=== PATIENT | female | born 1965 | race Caucasian/White ===

== ENCOUNTER 2016-11-12 06:06 | Inpatient (IN) ==
[2016-11-09 09:54] LABS: HEMATOCRIT 40.8 % (37.0-47.0); HEMOGLOBIN 13.4 g/dL (12.0-16.0); MCH 28.9 PG (27-31); MCHC 32.8 g/dL (33-37); MCV 87.9 FL (81-99); MPV 10.5 FL (7.4-10.4); RBC 4.64 XMIL (4.2-5.4)
[2016-11-09 10:24] LABS: AGAP 10; BUN 16 mg/dL (8-22); CALCIUM 8.9 mg/dL (8.8-10.2); CHLORIDE 103 mmol/L (98-107); COSMO 286; SODIUM 143 mmol/L (136-145); TCO2 30 mmol/L (25-35)
--- NOTE | 2016-11-09 11:16 | EKG Report ---
Test Performed on : 11/09/2016 09:31:11 AM Test Reason : PAT Blood Pressure : / mmHG Vent. Rate : 067 BPM Atrial Rate : 067 BPM P-R Int : 138 ms QRS Dur : 082 ms QT Int : 386 ms P-R-T Axes : 073 076 076 degrees QTc Int : 407 ms Normal sinus rhythm. Normal ECG No previous ECGs available Confirmed by Sintia WHITNEY, Lior Gimenez ([id number]) on 11/09/2016 5:24:13 PM
[2016-11-12] MEDS ORDERED: KEFZOL 1 GM/D5W 50 ML ONE (06:13)
[2016-11-12] MEDS ORDERED: REGLAN ONE (06:13)
[2016-11-12] MEDS ORDERED: LR 1,000 ML ONE ×2 (06:13→10:54)
[2016-11-12] MEDS ORDERED: PEPCID ONE (06:13)
[2016-11-12] MEDS ORDERED: DUONEB (A & A) INH ONE (06:40)
[2016-11-12] MEDS ORDERED: CLINDAMYCIN 600 MG/NS 50 ML ONE (07:12)
[2016-11-12] MEDS ORDERED: MARCAINE 0.25% PF/EPI 1:200,000 ONE (07:59)
[2016-11-12] MEDS ORDERED: FENTANYL ONE (10:17)
[2016-11-12] MEDS ORDERED: DIPRIVAN 1% ONE (10:18)
[2016-11-12] MEDS ORDERED: VERSED ONE (10:18)
[2016-11-12] MEDS: DILAUDID ONE ×2 (10:19→10:38)
[2016-11-12] MEDS ORDERED: D5 LR 1,000 ML ONE (10:52)
[2016-11-12] MEDS ORDERED: ATROPINE ONE (10:53)
[2016-11-12] MEDS ORDERED: NEOSTIGMINE ONE (10:53)
[2016-11-12] MEDS ORDERED: QUELICIN (DOSE) ONE (10:54)
[2016-11-12] MEDS ORDERED: DECADRON ONE (10:54)
[2016-11-12] MEDS ORDERED: ZEMURON ONE (10:54)
[2016-11-12] MEDS ORDERED: XYLOCAINE-MPF 2% ONE (10:54)
[2016-11-12] MEDS ORDERED: ROBINUL ONE (10:54)
[2016-11-12] MEDS ORDERED: EPHEDRINE ONE (10:54)
[2016-11-12] MEDS ORDERED: ROBAXIN PO PRN (12:05)
[2016-11-12] MEDS ORDERED: NORCO-10 PO PRN (12:05)
[2016-11-12] MEDS ORDERED: PERCOCET-10 PO PRN (12:10)
[2016-11-12] MEDS ORDERED: FLUZONE QUAD 2016-2017 SYRINGE IM ONE (12:40)
[2016-11-12] MEDS: DILAUDID IV PRN ×4 (12:54→23:52)
[2016-11-12] MEDS: D5 LR 1,000 ML IV SCH (12:54)
[2016-11-12] MEDS ORDERED: PERCOCET-10 PO SCH (13:00)
[2016-11-12] MEDS ORDERED: PNEUMOVAX 23 IM ONE (14:45)
[2016-11-12] MEDS: CARAFATE PO SCH ×3 (15:27→21:50)
[2016-11-12] MEDS: LYRICA PO SCH ×2 (15:27→21:50)
[2016-11-12] MEDS: PERIDEX MT SCH ×2 (15:27→21:48)
[2016-11-12] MEDS: SPIRIVA INH SCH (16:43)
[2016-11-12] MEDS: ZOFRAN IV PRN (18:26)
[2016-11-12] MEDS: PERCOCET-10 PO PRN (21:49)
[2016-11-12] MEDS: VALIUM PO SCH (21:49)
[2016-11-12] MEDS: WELLBUTRIN SR PO SCH (21:49)
[2016-11-12] MEDS: DESYREL PO SCH (21:50)
[2016-11-13] MEDS: PRILOSEC PO SCH (06:28)
[2016-11-13] MEDS: CARAFATE PO SCH ×4 (06:28→22:23)
[2016-11-13] MEDS: PERCOCET-10 PO PRN ×3 (06:28→22:21)
[2016-11-13] MEDS: D5 LR 1,000 ML IV SCH (06:30)
[2016-11-13] MEDS: SPIRIVA INH SCH (08:04)
[2016-11-13] MEDS: SYMBICORT 160/4.5 MICROGM INHALER INH SCH ×2 (08:04→21:03)
[2016-11-13] MEDS: DILAUDID IV PRN ×4 (08:17→17:11)
[2016-11-13] MEDS: LYRICA PO SCH ×3 (08:18→22:23)
[2016-11-13] MEDS: WELLBUTRIN SR PO SCH ×2 (08:18→22:23)
[2016-11-13] MEDS: PERIDEX MT SCH ×2 (08:25→22:23)
[2016-11-13] MEDS: VALIUM PO SCH (08:25)
[2016-11-13] MEDS: CYMBALTA PO SCH ×2 (12:12)
[2016-11-13] MEDS: ZOFRAN IV PRN ×2 (12:12→17:57)
[2016-11-13] MEDS: LOVENOX SUBQ SCH (12:14)
--- NOTE | 2016-11-13 13:18 | PROGRESS NOTE ---
DATE: 11/13/2016 SUBJECTIVE: She has had pain overnight. That is her main issue. No nausea. She is having bowel function. OBJECTIVE: No fevers. No tachycardia. Abdomen is appropriately tender. Dressings, incisions look okay. I reviewed her labs. 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 She is having quite a bit of pain. I have asked the nurse to administer p.r.n. Dilaudid in addition to her Percocet. She does have chronic pain issues related to a pelvis fracture in the past which she takes Percocet chronically for. Otherwise I think she is progressing as appropriate. Will advance her diet as tolerated and encourage physical therapy and out of bed.
[2016-11-13] MEDS: DESYREL PO SCH (22:23)
[2016-11-14] MEDS: VALIUM PO SCH ×2 (05:55→14:04)
[2016-11-14] MEDS: PRILOSEC PO SCH (06:01)
[2016-11-14] MEDS: PERCOCET-10 PO PRN ×2 (06:01→09:02)
[2016-11-14] MEDS: CARAFATE PO SCH ×3 (06:01→17:08)
[2016-11-14] MEDS: CYMBALTA PO SCH ×2 (09:01)
[2016-11-14] MEDS: LYRICA PO SCH ×2 (09:02→17:07)
[2016-11-14] MEDS: WELLBUTRIN SR PO SCH (09:02)
[2016-11-14] MEDS: LOVENOX SUBQ SCH ×2 (09:02→11:50)
[2016-11-14] MEDS: PERIDEX MT SCH (09:03)
[2016-11-14] MEDS: DILAUDID IV PRN ×3 (09:03→18:01)
--- NOTE | 2016-11-14 13:14 | PROGRESS NOTE ---
DATE: 11/14/2016 SUBJECTIVE: She continues to complain of pain. She is passing gas. No nausea. OBJECTIVE: Vital signs: No fevers. No tachycardia. Blood pressures are stable but mildly low at 95/58 and this is what they have been throughout her admission. General: She is alert. Abdomen: Soft. Appropriately tender. Dressings are clean, dry, intact. LABS: I reviewed her labs. Nothing new today. ASSESSMENT AND PLAN: This is a 51-year-old female status post lumbar hernia repair laparoscopically she has chronic pain and pain control is an issue for her. Dilaudid does seem to help. Continue to monitor her. I have encouraged her to get out of bed. Will advance her diet. Will continue to follow.
[2016-11-14] MEDS: SYMBICORT 160/4.5 MICROGM INHALER INH SCH ×2 (18:26→20:24)
[2016-11-14] MEDS: SPIRIVA INH SCH (18:27)
[2016-11-15] MEDS: DESYREL PO SCH ×2 (00:07→20:00)
[2016-11-15] MEDS: WELLBUTRIN SR PO SCH ×3 (00:07→20:00)
[2016-11-15] MEDS: CARAFATE PO SCH ×5 (00:07→20:00)
[2016-11-15] MEDS: LYRICA PO SCH ×4 (00:08→23:58)
[2016-11-15] MEDS: VALIUM PO SCH ×2 (00:08→09:12)
[2016-11-15] MEDS: SPIRIVA INH SCH ×2 (00:08→08:30)
[2016-11-15] MEDS: PERIDEX MT SCH ×3 (00:08→20:00)
[2016-11-15] MEDS: DILAUDID IV PRN (04:39)
[2016-11-15] MEDS: PRILOSEC PO SCH (06:18)
[2016-11-15] MEDS: SYMBICORT 160/4.5 MICROGM INHALER INH SCH ×2 (08:02→20:19)
[2016-11-15] MEDS: PERCOCET-10 PO PRN ×4 (08:43→23:58)
[2016-11-15] MEDS: CYMBALTA PO SCH ×2 (08:43→08:44)
[2016-11-15] MEDS: ZOFRAN IV PRN (09:13)
--- NOTE | 2016-11-15 10:00 | PROGRESS NOTE ---
DATE: 11/15/2016 SUBJECTIVE: The patient complains of pain in her right abdomen and back. She reports throwing up yesterday but none overnight or this morning. She has passed some gas. She has walked only to the bedside commode and back. OBJECTIVE: Vital Signs: She is afebrile. Vital signs are stable. She is on a little oxygen by nasal cannula. Her O2 saturation is 91-98%. Respiratory rate 15-18. General: She is alert and oriented x3. No acute distress. Respiratory: No work of breathing. Bilateral equal breath sounds. CV: Regular rate and rhythm. Gastrointestinal: Soft and nondistended. No bruising, hematoma, or seroma. She has appropriate mild tenderness along the right flank and right lower quadrant. The incision is clean, dry, and intact. No erythema is present. Abdomen: Was soft and nondistended. ASSESSMENT AND PLAN: A 51-year-old female, status post right-sided flank or lumbar hernia repair. She has had some difficulties with pain control. She is on chronic pain medicine. She seems quite unmotivated to move. I have strongly encouraged her to get up and walk today. I am going to consult physical therapy for assistance with this. We need to try to wean her off her oxygen as she does not wear oxygen at home. I told her to drink plenty of liquids and only eat what food she can tolerate and not to push that too much right now. Hopefully, she can be discharged within the next 24 hours.
[2016-11-15] MEDS: LOVENOX SUBQ SCH (11:16)
--- NOTE | 2016-11-15 17:56 | OPERATIVE NOTE ---
PROCEDURE DATE: 11/12/2016 PREOPERATIVE DIAGNOSIS: Traumatic abdominal wall hernia. POSTOPERATIVE DIAGNOSIS: Traumatic abdominal wall hernia. PROCEDURE: 1. Open repair of abdominal hernia on the right lower quadrant and right flank. 2. Intermediate closure. SURGEON: Monty Farrell MD ANESTHESIA: General. ESTIMATED BLOOD LOSS: 50 mL. COMPLICATIONS: None apparent. SPECIMENS: Hernia sac FINDINGS: Moderately large 5 x 6 cm hernia defect along the right lower quadrant flank just cephalad to the iliac crest. This had reducible colon herniating out into the sac. TECHNIQUE: She was brought to the operating room. General anesthesia was induced. A Elias catheter was placed. She was placed on her left side with the right side up. She was prepped and draped in sterile fashion. A transverse incision was made over the right lower quadrant and right flank. The dissection was carried down through the subcutaneous tissues with cautery. The hernia sac was encountered and dissected free from the overlying subcutaneous fatty adhesions to the edges. The fascia were delineated circumferentially with cautery. The hernia sac was then entered sharply, and was excised from the edges of the fascia. The colon, appendix, and omentum were reduced back into the abdominal cavity. I then selected an 8 cm circular dual sided Symbotex mesh and placed it in an inlay intraperitoneal position. It was anchored to the abdominal wall muscles as well as some of the periosteum of the iliac crest with interrupted horizontal mattress 2-0 Prolene. There was only enough for a finger tip between each throw. The mesh was in good approximation all the way around once this was all done. I then closed the fascia over the mesh with interrupted horizontal mattress #1 Prolene, this was under mild to moderate degree of tension. I then closed the subcutaneous Eben's fascia with interrupted 3-0 Polysorb and closed the skin with skin clips. This was done after hemostasis was achieved in the wound with cautery. She tolerated this well. A sterile dressing was applied. There were no apparent complications. She was awakened in stable condition and transferred to the recovery room.
[2016-11-16] MEDS: DESYREL PO SCH (01:28)
[2016-11-16] MEDS: VALIUM PO SCH ×3 (01:28→21:50)
[2016-11-16] MEDS: CARAFATE PO SCH ×4 (07:41→21:49)
[2016-11-16] MEDS: PRILOSEC PO SCH (07:41)
[2016-11-16] MEDS: SPIRIVA INH SCH ×3 (07:48→18:26)
[2016-11-16] MEDS: SYMBICORT 160/4.5 MICROGM INHALER INH SCH ×2 (07:48→23:10)
[2016-11-16] MEDS: WELLBUTRIN SR PO SCH ×2 (08:08→21:50)
[2016-11-16] MEDS: CYMBALTA PO SCH ×2 (08:08)
[2016-11-16] MEDS: PERIDEX MT SCH ×2 (08:08→21:50)
[2016-11-16] MEDS: PERCOCET-10 PO PRN ×4 (08:24→21:49)
[2016-11-16] MEDS: LOVENOX SUBQ SCH (11:12)
[2016-11-16] MEDS: LYRICA PO SCH ×3 (11:12→21:50)
--- NOTE | 2016-11-16 13:30 | PROGRESS NOTE ---
DATE: 11/16/2016 SUBJECTIVE: The patient is feeling a little better. She is hurting on her right side but she is ambulating more and eating without nausea or vomiting. She walked at least 1000 feet with a walker yesterday. However her oxygen levels do decrease down into the mid to low 80s with exertion. She continues to require supplemental oxygen through nasal cannula. OBJECTIVE: She is afebrile. Pulse is 50s to 80s, blood pressure 99-164 systolic. O2 saturation 93-100% on 2 L.General: She is alert and oriented x4. No acute distress. Respiratory: Bilateral equal breath sounds. No work of breathing. Gastrointestinal: Soft, appropriately tender. Incision is clean, dry, and intact. She is nondistended. ASSESSMENT AND PLAN: A 51-year-old female, status post right traumatic abdominal wall hernia repair. She is somewhat hypoxic with exertion. I will consult Dr. Rueda who she has seen in the past for assistance and advice on her home needs for possible home oxygen.
--- NOTE | 2016-11-16 15:02 | CONSULTATION ---
DATE OF CONSULTATION: 11/16/2016 REFERRING PHYSICIAN: Monty Farrell MD CHIEF COMPLAINT: Evaluation for hypoxia in a patient who is postoperative for abdominal hernia/traumatic and history of chronic obstructive pulmonary disease and shortness of breath. HISTORY OF PRESENTING ILLNESS: This is a 51-year-old female with past medical history of moderate COPD with FEV1 in the range of 40-50% in the recent PFT in October 2016, who presented to the hospital for posttraumatic hernia surgery repair, noticed to have postoperative hypoxia and may require home oxygen. PAST MEDICAL HISTORY: Moderate COPD, depression, anxiety, active smoker, chronic bronchitis, seasonal allergies. Echo on October 2016 shows mild mitral regurgitation. PAST SURGICAL HISTORY: Recent trauma and was bed bound for a few weeks recently. This admission she had a hernia repair. SOCIAL HISTORY: Active smoker. Boyfriend present during evaluation. Smoking cessation and hazards of smoking with the use of oxygen were discussed. FAMILY HISTORY: COPD. REVIEW OF SYSTEMS: As detailed in history of presenting illness. Otherwise noncontributory. ALLERGIES: Her allergies were reviewed this admission and they include penicillin possibly. MEDICATIONS: Reviewed including Lovenox for DVT prophylaxis, nebulized treatment, and bronchodilator therapy, Prilosec, Percocet, Spiriva, Desyrel. PHYSICAL EXAMINATION: Vital Signs: Noted. Head and Neck: Examined. Trachea midline. General: She up in chair, slightly lethargic. Boyfriend in the room. Mild abdominal pain postsurgical. Chest: Bilateral wheezing, mild in nature. Cardiac: S1, S2. Abdomen: Nontender. Extremities: There is +1 pedal edema. Neurologic: Awake, communicative. LABS AND INVESTIGATIONS: We ordered chest CT angiogram to rule out PE. CBC, chemistry reviewed. We ordered ABG. ASSESSMENT AND PLAN: A 51-year-old female with past medical history as above, presented now with posttraumatic hernia surgical repair. She has moderate chronic obstructive pulmonary disease, hypoxia, shortness of breath. Rule out pulmonary embolus because of the recent poor function capacity and bedbound nature for the last few weeks per patient and her boyfriend. Continue current therapy and pulmonary toilet. Thank you for the courtesy of this consultation.
--- NOTE | 2016-11-16 15:09 | Diag Imaging Result Document ---
PROCEDURE NAME: ANGIOGRAM/PULMONARY ARTERIES - 11/16/2016 CT ANGIOGRAM PULMONARY ARTERIES WITH CONTRAST: FINDINGS: Exam performed with intravenous contrast. A dose reduction protocol was used. Compared with the CT thorax of 02/10/2016. There are no filling defects identified in the pulmonary arteries. There is no indication of aortic dissection. There is cardiomegaly. There is left upper lobe consolidation compatible with pneumonia. There is atelectasis of the bilateral lower lobes. The presence or absence of pneumonia at the bilateral lower lobes is difficult to determine due to the atelectasis. There is a small amount of peripheral atelectasis or infiltrate at the anteromedial right upper lobe. There are tiny bilateral pleural effusions. There is no pneumothorax seen. There is a calcified granuloma from old granulomatous disease at the posterolateral right upper lobe. IMPRESSION: 1. No evidence of pulmonary embolism. 2. Left upper lobe pneumonia. Atelectasis of bilateral lower lobes. 3. Tiny bilateral pleural effusions. 4. Cardiomegaly.
[2016-11-16 15:59] LABS: ALLEN TEST YES; BLOOD TYPE ARTERIAL; DRAW SITE R RADIAL; METHB 1.5 % (0.0-1.5); O2(CT) 14.5 mL/dL (15.0-23.0); PO2(98.6) 74 mmHg (60-100); SAMPLE BLOOD; SAO2 97.1 % (95.0-100.0); pH(98.6) 7.34 (7.35-7.45)
[2016-11-16 16:02] LABS: MODALITY CANNULA; PCO2(98.6) 64 mmHg (35-45)
[2016-11-16] MEDS: LEVAQUIN 500 MG/D5W 100 ML IV SCH (21:49)
[2016-11-17] MEDS: PERCOCET-10 PO PRN ×6 (01:25→23:37)
[2016-11-17] MEDS: DESYREL PO SCH (03:26)
[2016-11-17 04:55] LABS: ALLEN TEST YES; BE 8.8 mmoll (-3.0-3.0); BLOOD TYPE ARTERIAL; DRAW SITE R RADIAL; METHB 1.7 % (0.0-1.5); O2(CT) 14.4 mL/dL (15.0-23.0); PO2(98.6) 70 mmHg (60-100); SAMPLE BLOOD; pH(98.6) 7.35 (7.35-7.45)
[2016-11-17 04:57] LABS: MODALITY BI PAP; PCO2(98.6) 66 mmHg (35-45)
[2016-11-17] MEDS: PRILOSEC PO SCH ×2 (05:36→08:12)
[2016-11-17] MEDS: CARAFATE PO SCH ×5 (05:36→21:56)
[2016-11-17] MEDS: SPIRIVA INH SCH (09:05)
[2016-11-17] MEDS: SYMBICORT 160/4.5 MICROGM INHALER INH SCH ×2 (09:05→20:43)
[2016-11-17] MEDS: LYRICA PO SCH ×3 (09:42→21:56)
[2016-11-17] MEDS: PERIDEX MT SCH ×2 (09:42→21:56)
[2016-11-17] MEDS: WELLBUTRIN SR PO SCH ×2 (09:43→21:56)
[2016-11-17] MEDS: CYMBALTA PO SCH ×2 (09:43→09:44)
[2016-11-17] MEDS: LOVENOX SUBQ SCH (09:44)
[2016-11-17] MEDS: VALIUM PO SCH ×2 (09:52→21:56)
--- NOTE | 2016-11-17 20:18 | PROGRESS NOTE ---
DATE: 11/17/2016 SUBJECTIVE: The patient complains of weakness and pain. She is eating some without vomiting. She is walking some with therapy. OBJECTIVE: Vital signs: She is afebrile. Vital signs are stable. O2 saturation in the low 90% arranged. General: She is alert and oriented x4. No acute distress. Sitting up in chair. Respiratory: Bilateral breath sounds. No work of breathing. CARDIOVASCULAR: Regular rate and rhythm. Gastrointestinal: Soft, appropriately tender. Incision clean, dry intact. IMAGING: A CT angiogram of the chest shows left sided pneumonia with bibasilar atelectasis. ASSESSMENT AND PLAN: This lady is status post traumatic abdominal hernia repair with postoperative pneumonia. I appreciate Dr. Rueda's assistance. She is now on antibiotics and receiving pulmonary toilet. Further hospitalization will be dictated by her recovery of this pneumonia.
[2016-11-17] MEDS: LEVAQUIN 500 MG/D5W 100 ML IV SCH (21:57)
[2016-11-18] MEDS: DESYREL PO SCH ×2 (01:49→20:52)
[2016-11-18] MEDS: PERCOCET-10 PO PRN ×5 (04:10→21:40)
[2016-11-18] MEDS: CARAFATE PO SCH ×4 (07:36→20:52)
[2016-11-18] MEDS: PRILOSEC PO SCH (07:37)
[2016-11-18] MEDS: VALIUM PO SCH ×2 (08:51→20:52)
[2016-11-18] MEDS: CYMBALTA PO SCH ×2 (08:52)
[2016-11-18] MEDS: LYRICA PO SCH ×3 (08:52→20:52)
[2016-11-18] MEDS: WELLBUTRIN SR PO SCH ×2 (08:53→20:52)
[2016-11-18] MEDS: PERIDEX MT SCH ×2 (08:53→20:52)
[2016-11-18] MEDS: SYMBICORT 160/4.5 MICROGM INHALER INH SCH ×2 (08:55→19:30)
[2016-11-18] MEDS: SPIRIVA INH SCH (08:55)
[2016-11-18] MEDS ORDERED: DULCOLAX PR ONE (09:33)
[2016-11-18] MEDS: COLACE PO SCH ×2 (11:17→20:52)
[2016-11-18] MEDS: LOVENOX SUBQ SCH (11:17)
--- NOTE | 2016-11-18 12:52 | PROGRESS NOTE ---
DATE: 11/18/2016 SUBJECTIVE: The patient says she is walking more and eating. She is hopeful to go home soon. OBJECTIVE: Vital Signs: She is afebrile. Vital signs are stable. O2 saturation 93% to 99% on nasal cannula. General: She is alert and oriented x4. In no acute distress. Respiratory: She has bilateral expiratory wheeze and faint crackles, more so on the left. Gastrointestinal: Soft, nondistended, appropriately tender. Her incision is clean, dry, and intact. ASSESSMENT AND PLAN: This is a 51-year-old female status post right traumatic abdominal wall hernia repair, now with postoperative pneumonia in the setting of chronic obstructive pulmonary disease. Further hospitalization will be dictated by Dr. Rueda for her pulmonary status. I await his recommendations for discharge with or without oxygen and/or antibiotics.
[2016-11-18] MEDS: LEVAQUIN 500 MG/D5W 100 ML IV SCH (20:52)
[2016-11-19] MEDS: PERCOCET-10 PO PRN ×4 (04:56→19:18)
[2016-11-19] MEDS: PRILOSEC PO SCH (07:22)
[2016-11-19] MEDS: CARAFATE PO SCH ×3 (07:22→16:46)
[2016-11-19] MEDS: SPIRIVA INH SCH (09:03)
[2016-11-19] MEDS: SYMBICORT 160/4.5 MICROGM INHALER INH SCH ×2 (09:04→19:51)
[2016-11-19] MEDS: WELLBUTRIN SR PO SCH (09:55)
[2016-11-19] MEDS: CYMBALTA PO SCH ×2 (09:55)
[2016-11-19] MEDS: LYRICA PO SCH ×2 (09:55→14:14)
[2016-11-19] MEDS: COLACE PO SCH (09:55)
[2016-11-19] MEDS: LOVENOX SUBQ SCH (09:56)
[2016-11-19] MEDS: PERIDEX MT SCH (09:57)
--- NOTE | 2016-11-19 09:59 | Diag Imaging Result Document ---
PROCEDURE NAME: CHEST-1 VIEW - 11/19/2016 PORTABLE UPRIGHT CHEST: COMPARISON: 04/09/2014. FINDINGS: There are dense infiltrates in the mid left lung on the current exam. The heart is not enlarged. The vessels are not distended. There is a granuloma in the mid right lung. No pleural effusion is identified. IMPRESSION: Dense mid left lung infiltrates.
[2016-11-19] MEDS: VALIUM PO SCH ×2 (10:58→13:01)
--- NOTE | 2016-11-19 16:42 | PROGRESS NOTE ---
DATE: 11/19/2016 SUBJECTIVE: The patient is doing well. She feels a little better. She is not any short of breath. OBJECTIVE: Vital signs: She is afebrile. Vital signs are stable. Oxygen saturation is 96-100%. General: She is alert and oriented x4. No acute distress. CV: Regular rate and rhythm. Respiratory: Bilateral breath sounds. Gastrointestinal: Soft, nondistended. Minimal tenderness. Her right flank incision is clean, dry and intact without erythema. She has had a bowel movement. IMAGING: Chest x-ray today continues to showed dense infiltrates in the mid left lung. ASSESSMENT AND PLAN: A 51-year-old female status post traumatic abdominal hernia repair with postoperative pneumonia and chronic obstructive pulmonary disease. Dr. Rueda has recommended keeping her 1 more day to allow her to be discharged tomorrow. I will plan to send her home with oral antibiotics for another week. Dr. Costello will make rounds for me tomorrow. She can follow up with me next week for skin clip removal.
[2016-11-20] MEDS: DESYREL PO SCH (01:17)
[2016-11-20] MEDS: PERIDEX MT SCH ×2 (01:17→09:49)
[2016-11-20] MEDS: LYRICA PO SCH ×2 (01:17→09:50)
[2016-11-20] MEDS: COLACE PO SCH ×2 (01:17→09:51)
[2016-11-20] MEDS: PERCOCET-10 PO PRN ×2 (01:17→06:18)
[2016-11-20] MEDS: VALIUM PO SCH ×2 (01:17→09:50)
[2016-11-20] MEDS: CARAFATE PO SCH ×3 (01:17→13:10)
[2016-11-20] MEDS: WELLBUTRIN SR PO SCH ×2 (01:17→09:50)
[2016-11-20] MEDS: LEVAQUIN 500 MG/D5W 100 ML IV SCH (01:18)
[2016-11-20] MEDS: PRILOSEC PO SCH (06:17)
[2016-11-20 07:48] VITALS: BP 126/73
[2016-11-20] MEDS: SYMBICORT 160/4.5 MICROGM INHALER INH SCH (07:55)
[2016-11-20] MEDS: SPIRIVA INH SCH (07:55)
[2016-11-20] MEDS: CYMBALTA PO SCH ×2 (09:49→09:50)
[2016-11-20] MEDS: LOVENOX SUBQ SCH (09:52)
== END 2016-11-20 14:28 | disposition home or self-care (01) | DRG 353 ==
LOC: PAT 06:06 → 4N 13:50 → OBSVTOIN 13:50 → DIRADM 11-16 06:57 → 4N 11-16 07:00
PROVIDERS: ADMIT Surgery; ATTEND Surgery
PROC: 0WUF0JZ Supplement Abdominal Wall with Synthetic Substitute, Open Approach (ICD-10-PCS; principal; 2016-11-12 08:15)
DX: K43.9 Ventral hernia without obstruction or gangrene (principal); J18.9 Pneumonia, unspecified organism; J96.91 Respiratory failure, unspecified with hypoxia; J95.89 Other postprocedural complications and disorders of respiratory system, not elsewhere classified; I10 Essential (primary) hypertension; F32.9 Major depressive disorder, single episode, unspecified; F17.210 Nicotine dependence, cigarettes, uncomplicated; K31.4 Gastric diverticulum; K57.30 Diverticulosis of large intestine without perforation or abscess without bleeding; K44.9 Diaphragmatic hernia without obstruction or gangrene; F41.9 Anxiety disorder, unspecified; M19.90 Unspecified osteoarthritis, unspecified site; J45.909 Unspecified asthma, uncomplicated; K21.9 Gastro-esophageal reflux disease without esophagitis; M81.0 Age-related osteoporosis without current pathological fracture; J44.9 Chronic obstructive pulmonary disease, unspecified; M54.9 Dorsalgia, unspecified; Z80.9 Family history of malignant neoplasm, unspecified; Z79.899 Other long term (current) drug therapy; Z79.51 Long term (current) use of inhaled steroids; Z86.19 Personal history of other infectious and parasitic diseases; Z87.11 Personal history of peptic ulcer disease; Z79.891 Long term (current) use of opiate analgesic
CPT/HCPCS: 71010; 71275; 80048; 82805; 85027; 88302; 93005; 93010; 94640; 94660; 94761; 94799; J0330; J0461; J0690; J1100; J1170; J1650; J2250; J2405; J3010; J7120; J7121; Q9967; 97116-GP; 97530-GP; J2710; S0077